=== PATIENT | male | born 1955 | race Caucasian/White ===

== ENCOUNTER → 2022-09-10 | Outpatient (CLI) | payer OTHER ==
[~2022-09-10] MED LIST: ALBU2.5V2 IH; ASPI-1012 PO; ATOR10 PO; FLEC100T3 PO; MELO-108 PO; OMEG1CAP6 PO; OMEP20CA12 PO; POTA99TA18 PO; TAMS-1 PO; VITA150T PO
== END | disposition home or self-care (01) ==
LOC: OIH 14:35
PROVIDERS: ATTEND Internal Medicine Cardiovascular Disease
DX: Z13.6 Encounter for screening for cardiovascular disorders (principal); K44.9 Diaphragmatic hernia without obstruction or gangrene
CPT/HCPCS: 75571

== ENCOUNTER → 2022-09-25 | Outpatient (CLI) | payer BC, MEDICARE ==
[~2022-09-25] MED LIST changes: +REGADENOSON 0.4 MG/5 ML PF SYG IVP ONE
== END | disposition home or self-care (01) ==
LOC: SHCH 08:47
PROVIDERS: ATTEND Internal Medicine Cardiovascular Disease
DX: I48.0 Paroxysmal atrial fibrillation (principal); I25.10 Atherosclerotic heart disease of native coronary artery without angina pectoris; E78.5 Hyperlipidemia, unspecified; Z87.891 Personal history of nicotine dependence; Z79.899 Other long term (current) drug therapy
CPT/HCPCS: 78452; 96374; 93017; J2785; A9500 ×2

== ENCOUNTER → 2024-02-07 | Outpatient (CLI) | payer MEDICARE ==
[~2024-02-07] MED LIST changes: -REGADENOSON 0.4 MG/5 ML PF SYG IVP ONE
== END | disposition home or self-care (01) ==
LOC: SHCH 12:45
PROVIDERS: ATTEND Student in an Organized Health Care Education/Training Program
DX: I48.0 Paroxysmal atrial fibrillation (principal)
CPT/HCPCS: 93306

== ENCOUNTER 2025-02-17 06:37 | Day surgery (SDC) | payer MEDICARE ==
[2025-02-15 13:48] LABS: IMMATURE GRANULOCYTE ABSOLUTE 0.02 K/uL (0-1); NUCLEATED RED BLOOD CELLS 0.0 % (0.0-0.19); PLATELET COUNT (AUTO) 204 K/uL (130-400); RED BLOOD CELL COUNT(AUTO) 4.11 MIL/uL (4.50-6.20); RED CELL DISTRIBUTION WIDTH 13.8 % (11.0-15.5); WHITE BLOOD COUNT (AUTO) 5.3 K/uL (4.8-10.8)
[2025-02-15 13:55] LABS: CREATININE 1.0 mg/dL (0.5-1.3); GLOMERULAR FILTR. RATE CALC 82.0 mL/min (>90); GLUCOSE,RANDOM 123.0 mg/dL (70-105); SODIUM SERUM 136.0 mmol/L (136-145); UREA NITROGEN, BLOOD 13.0 mg/dL (7-18)
[2025-02-15 14:45] VITALS: BP 134/84; PULSE 72; RESP 18; TEMP 98.2
[~2025-02-17] VITALS: Ht 177.8 cm; Wt 95.3 kg
[2025-02-17] VITALS (9 sets, daily range): BP systolic 99–136; BP diastolic 62–89; PULSE 54–71; RESP 9–16; TEMP 97.7
[2025-02-17] MEDS: 0.9%NACL 1000ML 1,000 ML IV SCH (08:30)
--- NOTE | 2025-02-17 08:58 | EKG ---
[facility] Test Date: 2025-02-17 Test Time: 06:50:23 Pat Name: JESSICA LOBO Department: [facility] Gender: M Utilization Management Nurse: [id number] : 1955 Requested By: ANA M GRIMES Order Number: [id number] Reading MD: Shade Cook Measurements Intervals [place] Rate: 65 P: 0 [place]: 0 QRS: 6 QRSD: 115 T: 6 QT: 472 QTc: 492 Interpretive Statements Atrial fibrillation Incomplete right bundle branch block Compared to ECG 06/23/2024 16:51:53 Incomplete right bundle-branch block now present Electronically Signed On 02-22-2025 13:03:25 INTEGRATION ANALYST by Shade Cook Please click the below link to view image of tracing.
[2025-02-17] MEDS ORDERED: LIDOCAINE PF 100MG/5ML (2%) SYRINGE 5ML ONE (10:35)
--- NOTE | 2025-02-17 10:54 | EKG ---
[facility] Test Date: 2025-02-17 Test Time: 10:45:28 Pat Name: JESSICA LOBO Department: [facility] Patient ID: [id number] Room: [facility] Gender: M Parking Meter Servicer: [id number] : 1955 Requested By: ANA M GRIMES Order Number: [id number] Reading MD: Shade Cook Measurements Intervals [place] Rate: 58 P: 42 [place]: 180 QRS: -19 QRSD: 94 T: -12 QT: 484 QTc: 475 Interpretive Statements Sinus bradycardia Nonspecific ST and T wave abnormality Compared to ECG 02/17/2025 06:50:23 ST (T wave) deviation now present Atrial fibrillation no longer present Incomplete right bundle-branch block no longer present Electronically Signed On 02-22-2025 13:03:36 HOUSEKEEPER/LAUNDRY ASSISTANT by Shade Cook Please click the below link to view image of tracing.
--- NOTE | 2025-02-17 11:30 | PRN ---
Procedure Note INDICATION FOR PROCEDURE: Longstanding persistent atrial fibrillation PROCEDURE: Cardioversion DATE OF PROCEDURE: 02/17/25 CORE OVEN TENDER: Jagdish Grimes MD PROCEDURE NOTE: The patient was brought to the day patient area in a fasting state. Anesthesia was provided by the anesthesia service. A synchronized shock of 200 joules was delivered resulting in sinus rhythm. The patient tolerated the procedure well. There were no complications. COMPLICATIONS: None IMPRESSION: Persistent atrial fibrillation status post successful cardioversion PLAN: 1. The patient will be observed and discharged home later today. 2. The patient's sotalol was increased to 120 mg bid last night. 3. I spoke to Triny Youngblood PA-C, the patient's primary care provider and he will go to our office on Saturday for an EKG which will then be faxed to me. 4. Follow-up with me in the office in approximately two weeks. JAGDISH GRIMES MD Feb 17, 2025 11:30
--- NOTE | 2025-02-17 11:45 | NUR ---
Cardioversion 1036 Dr Bhakta & Kevin both in room 1037 Time Out called 1038 Meds started 1040 200J cardioverted SR SB evident 1044 End of Procedure Total of 6 minutes
--- NOTE | 2025-02-17 11:47 | NUR ---
Full and complete discharge instructions given to Patient and Family both verbally and in writing. Tolerated fluids and voided in bathroom. PIV removed with catheter tip intact. W/C to POV with Family to home.
== END 2025-02-17 11:50 | disposition home or self-care (01) ==
LOC: DAH 06:37
PROVIDERS: ATTEND Internal Medicine Cardiovascular Disease
DX: I48.11 Longstanding persistent atrial fibrillation (principal); I25.10 Atherosclerotic heart disease of native coronary artery without angina pectoris; E78.5 Hyperlipidemia, unspecified; G43.909 Migraine, unspecified, not intractable, without status migrainosus; I45.10 Unspecified right bundle-branch block; Z87.891 Personal history of nicotine dependence; Z98.84 Bariatric surgery status; Z79.899 Other long term (current) drug therapy
CPT/HCPCS: 80048; 85025; 36415; 92960; 93005 ×2; J2003; J2704; A4620; A4215; A4223 ×3; A7002; A4222; A4221; A4663; A4216; A4606; J3490